=== PATIENT | female | born 1940 | race Caucasian/White ===

== ENCOUNTER → 2021-02-10 | Outpatient (CLI) | payer MEDICARE ==
[~2021-02-10] MED LIST: ASPIRIN EC81 MG PO; CALCIUM600 MG PO; HYDROCHLOROTHIA25 MG PO; LOPRESSOR 25 MG25 MG PO; MELATONIN PO; METAMUCIL PACK3.4 GM PO; PEPCID20 MG PO; PROTONIX 40 MG40 M1 PO; SENNA8.6 MG PO; SYNTHROID75 MCG PO; ZOLOFT25 MG PO
== END ==
LOC: HEART 5 01-06 08:30
DX: R06.02 Shortness of breath (principal); I27.20 Pulmonary hypertension, unspecified; I08.3 Combined rheumatic disorders of mitral, aortic and tricuspid valves
CPT/HCPCS: 78452; 93306; A9502; J2785

== ENCOUNTER 2021-07-12 01:34 | Emergency (ER) | payer MEDICARE ==
[2021-07-12 03:03] LABS: HEMOGLOBIN 14.7 gm/dl (12.3-15.3); RED BLOOD COUNT 4.68 M/UL (4.00-5.10); WHITE BLOOD COUNT 10.7 K/UL (4.5-11.0)
[2021-07-12 03:25] LABS: BUN/CREATININE RATIO 27 (0-10)
== END 2021-07-12 04:40 | disposition left against medical advice (07) ==
LOC: ER1 01:34
PROVIDERS: Physician Assistant
DX: R12 Heartburn (principal); I10 Essential (primary) hypertension; Z20.822 Contact with and (suspected) exposure to COVID-19
CPT/HCPCS: 71045; 80053; 82550; 82553; 83874; 84484; 85025; 93005; 96365; 99284; U0002

== ENCOUNTER → 2021-10-28 | Outpatient (CLI) | payer MEDICARE | LOC: KOH-I 09:14 | DX: M25.561 Pain in right knee (principal); M17.11 Unilateral primary osteoarthritis, right knee | CPT/HCPCS: 73560 ==